=== PATIENT | female | born 1975 | race Caucasian/White ===

== ENCOUNTER 2024-07-02 01:16 | Emergency (ER) | payer OTHER ==
[~2024-07-02] VITALS: Ht 175.3 cm; Wt 90.2 kg
[2024-07-02 01:17] VITALS: BP 131/76; TEMP 97.8; O2SAT 100
== END 2024-07-02 04:08 | disposition left against medical advice (07) ==
LOC: M ED 01:16
DX: Z53.21 Procedure and treatment not carried out due to patient leaving prior to being seen by health care provider (principal)